=== PATIENT | male | born 1945 | race Caucasian/White ===

== ENCOUNTER → 2019-09-17 | Outpatient (CLI) | payer MEDICARE, OTHER ==
[~2019-09-17] MED LIST: ATOR40TA78 PO; FINA5TAB4 PO; GLUC15006 PO; LACT1CAP35 PO; PANT40TA5 PO; TAMS-11 PO; [UNRECOGNIZED DRUG - CODE] PO; [UNRECOGNIZED DRUG - OTHER] PO
[2019-09-17 13:09] LABS: BASOPHILS # (AUTO) 0.03 x10^3/uL (0-0.1); BASOPHILS % (AUTO) 0 % (0-1); EOSINOPHILS # (AUTO) 0.24 x10^3/uL (0-0.4); EOSINOPHILS % (AUTO) 3 % (1-7); LYMPHOCYTES # (AUTO) 1.67 x10^3/uL (1-3.4); LYMPHOCYTES % (AUTO) 22 % (22-44); MD NO; MEAN CORPUSCULAR HEMOGLOBIN 31.6 pg (27.5-34.5); MEAN CORPUSCULAR HGB CONC 32.4 g/dL (33.2-36.2); MEAN CORPUSCULAR VOLUME 97.5 fL (81-97); MEAN PLATELET VOLUME 7.6 fL (7.4-10.4); MONOCYTES # (AUTO) 0.32 x10^3/uL (0.2-0.8); MONOCYTES % (AUTO) 4 % (2-9); NEUTROPHILS # (AUTO) 5.29 x10^3/uL (1.8-6.8); NEUTROPHILS % (AUTO) 70 % (42-75); PLATELET COUNT 282 x10^3/uL (130-400); RED BLOOD COUNT 4.61 x10^6/uL (4.38-5.82); RED CELL DISTRIBUTION WIDTH 13.9 % (9.4-14.8)
[2019-09-17 13:20] LABS: MICROSCOPIC NOT IND
[2019-09-17 13:27] LABS: CULTURE INDICATED? NO
== END | disposition home or self-care (01) ==
LOC: STAR 11:51
PROVIDERS: ATTEND Orthopaedic Surgery
DX: Z01.818 Encounter for other preprocedural examination (principal); M17.12 Unilateral primary osteoarthritis, left knee; I45.10 Unspecified right bundle-branch block
CPT/HCPCS: 36415; 81003; 85025; 87081; 87389; 93005

== ENCOUNTER 2019-09-27 07:40 | Observation (INO) | payer MEDICARE, OTHER ==
[~2019-09-27] VITALS: Ht 177.8 cm; Wt 92.3 kg
[~2019-09-27 07:40] MED LIST changes: +BACITRACIN 50,000 UNIT ONE; +EPINEPHRINE 1 MG/ML, 1ML ONE; +KETOROLAC 60 MG/2 ML ONE; +ROPIvacaine/PF 0.2%, 20 ML ONE; +SODIUM CHLORIDE 0.9% 50 ML ONE; +TRANEXAMIC ACID 100 MG/ML, 10ML ONE; +morphine SULFATE/PF 1 MG/ML, 10ML ONE
[2019-09-27] MEDS ORDERED: LACTATED RINGERS 1,000 ML IV SCH (08:10)
[2019-09-27 08:29] VITALS: BP 124/75
[2019-09-27] MEDS ORDERED: DIAZEPAM 5 MG TABLET PO ONE ×2 (08:30)
[2019-09-27] MEDS ORDERED: VANCOMYCIN PMX 1GM/200ML 200 ML IV ONE (08:30)
[2019-09-27] MEDS ORDERED: GABAPENTIN 300 MG CAPSULE PO ONE ×2 (08:30)
[2019-09-27] MEDS ORDERED: ACETAMINOPHEN 500 MG TABLET PO ONE ×2 (08:30)
[2019-09-27] MEDS ORDERED: ONDANSETRON ODT 8 MG PO ONE ×2 (08:30)
[2019-09-27] MEDS ORDERED: MIDAZOLAM 1 MG/ML, 2ML ONE (09:22)
[2019-09-27] MEDS ORDERED: PROPOFOL 50 ML ONE (09:22)
[2019-09-27] MEDS ORDERED: FENTANYL PF 250 MCG/5ML ONE (09:22)
[2019-09-27] MEDS: D5%-0.45% NACL 1,000 ML IV SCH ×3 (09:39→22:57)
[2019-09-27] MEDS ORDERED: CEFAZOLIN 1,000 MG ONE (09:50)
[2019-09-27] MEDS ORDERED: ACETAMINOPHEN 325 MG TABLET PO PRN (10:00)
[2019-09-27] MEDS ORDERED: ONDANSETRON 2MG/ML, 2ML IVPush PRN (10:00)
[2019-09-27] MEDS ORDERED: TRANEXAMIC ACID 1,000 MG in SODIUM CHLORIDE 0.9% 100 ML IV ONE ×2 (10:00→15:00)
[2019-09-27] MEDS ORDERED: DIPHENHYDRAMINE 50 MG CAPSULE PO PRN (10:00)
[2019-09-27] MEDS ORDERED: morphine SULFATE 10 MG/ML, 1ML IVPush PRN (10:00)
[2019-09-27] MEDS ORDERED: ZOLPIDEM 5MG TABLET PO PRN (10:00)
[2019-09-27] MEDS ORDERED: LORazepam 2 MG/ML, 1ML IVPush PRN (10:00)
[2019-09-27] MEDS ORDERED: FENTANYL PF 100 MCG/2ML IV PRN (10:30)
[2019-09-27] MEDS ORDERED: EPHEDRINE 50 MG/ML, 1ML IM PRN (10:30)
[2019-09-27] MEDS ORDERED: PROMETHAZINE 25 MG/ML, 1ML IV PRN (10:30)
[2019-09-27] MEDS ORDERED: DIPHENHYDRAMINE 50 MG/ML, 1ML IVPush PRN (10:30)
[2019-09-27] MEDS ORDERED: MIDAZOLAM 1 MG/ML, 2ML IV PRN (10:30)
[2019-09-27] MEDS ORDERED: DIAZEPAM 5 MG/ML, 2ML IVPush PRN (10:30)
[2019-09-27] MEDS ORDERED: METOPROLOL 1 MG/ML, 5ML IV PRN (10:30)
[2019-09-27] MEDS ORDERED: ONDANSETRON 2MG/ML, 2ML IV PRN (10:30)
[2019-09-27] MEDS ORDERED: MORPHINE SULFATE 4 MG/ML, 1ML IVPush PRN (10:30)
[2019-09-27] MEDS ORDERED: hydrALAzine 20 MG/ML, 1ML IV PRN (10:30)
[2019-09-27] MEDS ORDERED: ONDANSETRON ODT 8 MG PO PRN (10:30)
[2019-09-27] MEDS ORDERED: EPHEDRINE 50 MG/ML, 1ML IVPush PRN (10:30)
[2019-09-27] MEDS ORDERED: DEXAMETHASONE 4 MG/ML, 1ML ONE (11:17)
[2019-09-27] MEDS ORDERED: PROPOFOL 10 MG/ML, 20ML ONE (11:17)
[2019-09-27] MEDS ORDERED: ONDANSETRON 2MG/ML, 2ML ONE (11:17)
[2019-09-27] MEDS ORDERED: OXYcodone 5 MG/5 ML ORAL.SOL UDC ONE ×2 (12:15→12:22)
[2019-09-27] MEDS: OXYcodone 5 MG/5 ML ORAL.SOL UDC PO PRN ×2 (12:17→12:25)
[2019-09-27] MEDS ORDERED: FENTANYL PF 100 MCG/2ML ONE (12:22)
[2019-09-27 13:25] VITALS: BP 143/76
[2019-09-27] MEDS: CEFAZOLIN PMX 2GM/50ML 50 ML IVPB SCH (17:47)
[2019-09-27 18:55] VITALS: BP 123/66
[2019-09-27] MEDS: OXYcodone/APAP 7.5/325MG TABLET PO PRN (20:25)
[2019-09-27] MEDS ORDERED: ATORVASTATIN 40 MG TABLET PO SCH (21:00)
[2019-09-27 23:53] VITALS: BP 121/72
[2019-09-28] MEDS: CEFAZOLIN PMX 2GM/50ML 50 ML IVPB SCH ×2 (00:48→08:46)
[2019-09-28 02:14] VITALS: BP 134/70
[2019-09-28] MEDS ORDERED: PANTOPROZOLE 40MG TABLET PO SCH (06:00)
[2019-09-28] MEDS: OXYcodone/APAP 7.5/325MG TABLET PO PRN ×2 (06:20→12:34)
[2019-09-28] MEDS: D5%-0.45% NACL 1,000 ML IV SCH ×2 (06:20→09:26)
[2019-09-28 07:10] VITALS: BP 108/69
[2019-09-28] MEDS ORDERED: ASPIRIN 325 MG TABLET EC PO SCH ×2 (08:00→17:00)
[2019-09-28] MEDS ORDERED: LACTOBACILLUS CHEW TABLET PO SCH (09:00)
[2019-09-28] MEDS ORDERED: FINASTERIDE 5 MG TABLET PO SCH (09:00)
[2019-09-28] MEDS ORDERED: TAMSULOSIN 0.4 MG CAP.ER.24H PO SCH (09:00)
[2019-09-28] MEDS ORDERED: DOCUSATE 100 MG CAPSULE PO SCH ×2 (09:00→21:00)
[2019-09-28] MEDS ORDERED: VANCOMYCIN PMX 1GM/200ML 200 ML IVPB ONE (09:00)
[2019-09-28] MEDS ORDERED: CALCIUM/VITAMIN D3 250-125 TABLET PO SCH (09:00)
[2019-09-28 13:15] VITALS: BP 116/57
== END 2019-09-28 15:15 | disposition home or self-care (01) ==
LOC: OUT 07:40 → 4NE 13:17 → ORIP 22:06 → OUT 22:06 → 4NE 22:54 → DCLOUNGE 09-28 15:04
PROVIDERS: ADMIT Orthopaedic Surgery; ATTEND Orthopaedic Surgery
DX: M17.12 Unilateral primary osteoarthritis, left knee (principal); G47.30 Sleep apnea, unspecified; F10.10 Alcohol abuse, uncomplicated; Z87.891 Personal history of nicotine dependence; Z79.899 Other long term (current) drug therapy
CPT/HCPCS: 27447; 73560; 96365; 96366; 96367; 97110; 97161; 97165; C1713; C1776; G0378; J0171; J0690; J1100; J1885; J2250; J2274; J2405; J2704; J2795; J3010; J3370; J7120; Q0162